=== PATIENT | male | born 1970 | race Caucasian/White ===

== ENCOUNTER 2020-08-15 07:53 | Outpatient (CLI) | payer OTHER ==
[2020-08-15 08:55] VITALS: BP 128/89
--- NOTE | 2020-08-15 08:55 | SLEEP CARE CONSULTATION ---
Information from patient questionnaire entered by Yara Ratliff. I have reviewed and concur with the information entered by Yara Ratliff. This document represents the service I personally performed and the decisions made by me, Chelsea Lu ARNP. History of Present Illness Service Date and Time: 08/15/2020 0753 Reason for Visit: New patient, Previously diagnosed sleep apnea, sleep apnea on CPAP therapy Chief Complaint: reports: Snoring, Observed pauses in breathing, Fatigue, Frequent awakenings at night Date of Onset: 10 years Usual bedtime: 9:30-10 pm Time it takes to fall asleep: 3-5 minutes Snores at night: Yes Observed to quit breathing while asleep: Yes Sleeps alone due to snoring: Yes Number of times waking at night: 3-5 Reasons for waking at night: reports: Other (not sure) Toss, Turn, or Twitch while sleeping: No Recalls having dreams: No Usually gets out of bed at: 4:15-5 am Feels refreshed in the morning: No Morning headache: No Sleepy or fatigued during the day: Yes Ever fallen asleep while driving: Yes Takes day naps: No Dreams during day naps: No Prior sleep studies: Yes Year and Where: - [place], [place] Additional HPI information: CHAPIN SHORT was diagnosed to have unknown sleep apnea-hypopnea syndrome and comes in today to establish care for CPAP therapy. He came back in 2012 but due to work deployments he did not have time to establish care. He has been using CPAP since 2009. He has not been seeing a sleep clinician since 2012. - Parasomnia Symptoms Ever been unable to move upon waking from sleep: No Walks in sleep: No Talks in sleep: No Ever acted out dreams in sleep: No Ever felt weak in the knees when startled or emotional: Yes Bothered by creepy, crawly, restless sensations in legs: No Problems with memory or concentration: Yes CPAP Compliance Data - Data Reviewed with Patient Average duration of nightly device use: 6 hours 22 minutes Compliance rate %: 77.2 Current pressure setting (cmH2O): 4-20 (mean 7.7, 90% avg 11.2) Average residual AHI: 3.2 Average large leak: 12 seconds Compliance data discussion: He has been purchasing his supplies for several years. He has been using a full face mask that is currently falling apart. He states he uses the CPAP as much as he can. He has a machine that is over 10 years old and in the last week he has not felt the pressure is high enough and his has stated that he is snoring while using the CPAP. Subjective Missed days of use due to: reports: travel Patient concerns: reports: condensation in mask/hose (little bit, no heated hose). denies: aerophagia, mask discomfort, air blowing in eyes, mask leak noise, nasal congestion, dry mouth, nose, throat, epistaxis, other Observed to snore while using device: Yes (some in last week) Current pressure setting perceived as: too low On therapy, patient: reports: sleeping better, awakening more refreshed, being more awake and alert during the day, more rested overall. denies: drowsiness while driving Initial [place] Sleepiness Scale score: 21 (in 2020) Past Medical History Past Medical History: reports: GERD Social History The patient's occupation is a Active . Patient is and lives in [place]. Have you smoked in the past 12 months: No Quit date: 1999 Alcohol use: Yes Alcohol amount and frequency: 1-2 drinks maybe once a month Caffeine use: Yes Caffeine amount and frequency: 2 cups of coffee a day Family History Family history of sleep disordered breathing: No Allergies and Home Medications Drug allergies reviewed: Yes (NKDA) Home medication list reviewed: Yes Allergy and home medication list: Pantoprazole Review of Systems Cardiovascular: denies: high blood pressure Gastrointestinal: reports: heartburn, abdominal pain Neurological: denies: headaches Psychiatric: denies: anxiety, depression Ear/Nose/Throat: reports: wisdom teeth removed. denies: tonsillectomy Musculoskeletal: reports: joint pain, neck pain, back pain Physical Exam Blood Pressure: 128/89 Cuff size: wrist Heart Rate: 80 O2 Saturation: 96 Height: 5 ft 9 in Weight: 215 lb Body Mass Index: 31.7 BMI Classification: Obese Heart: regular rate and rhythm Lungs: clear bilaterally Impression and Plan 1. Obstructive Sleep Apnea-Hypopnea Syndrome, unknown, with fair treatment compliance and good apnea control. On CPAP therapy, the patient has better sleep quality and is more rested overall. He did not have a copy of his sleep study t roshni and we will be requesting this. He states the last sleep study was done in 2009. He needs a mask because his current one is falling apart making it difficult to use his machine. A [employer] full face mask, medium, was given to patient to use while we get his sleep study paperwork verified. The patients CPAP is over 10 years old and of reasonable use. Thus, the CPAP will be updated once we have his last sleep study verified or we obtain an HST to verify diagnosis and severity. A DWO prescription will be made once his diagnosis is verified to replace machine, supplies and transfer DME. Compliance guidelines for new device and follow up discussed. He voiced understanding and agreement with plan of care. Patient's apnea severity and rationale for treatment to reduce apnea, improve sleep quality and reduce cardiovascular and cerebrovascular events was reviewed. I also reviewed the benefit of consistent device use of CPAP for gastric reflux. * Continue auto CPAP pressure at 4-20 cmH2O * Obtain previous sleep study or complete HST to verify MISA * Transfer DME, update CPAP machine and supplies once diagnosis is verified * Notify me if snoring with mask or feeling that the pressure is too much or too little * Attempt to lose weight * Call this office if any problems using CPAP * Return for follow up after HST or 1 month after new machine obtained, or sooner if concerns arise Counseling Topics: Spare mask, Weight loss health impact Visit Type: In Office Time Spent with Patient (minutes): 44 Provider Statement: I spent 100% of the Face to Face Visit with the patient with greater than 50% spent counseling the patient and coordination of care.
== END 2020-08-15 07:54 | disposition home or self-care (01) ==
LOC: SC 07:53
PROVIDERS: ATTEND Nurse Practitioner Family
DX: G47.33 Obstructive sleep apnea (adult) (pediatric) (principal); E66.9 Obesity, unspecified; Z68.31 Body mass index [BMI] 31.0-31.9, adult
CPT/HCPCS: 99203; 99212

== ENCOUNTER 2021-09-09 14:48 | Outpatient (CLI) | payer OTHER | END 2021-09-09 14:49 | disposition short-term general hospital (02) | LOC: EMS 14:48 | DX: I21.3 ST elevation (STEMI) myocardial infarction of unspecified site (principal) | CPT/HCPCS: A0425; A0427 ==

== ENCOUNTER 2021-10-03 08:29 | Emergency (ER) | payer OTHER ==
--- OUTSIDE RECORDS SUMMARY | 2021-10-03 08:55 | EXTERNAL MEDICAL SUMMARY RPT | Continuity of Care Document ---
:1970 Author Organization [facility] Address [address] [place] [address] Phone Care Team Providers Name Role Phone M.Delbert, Norman Zurita Unavailable Unavailabl e Allergies No information. Encounters No information. Medications No information. Problems date description facility 20210909 ST elevation (STEMI) myocardial [facility] infarction of unspecified site 20210909 Unspecified chest pain All 20210909 Chest pain, unspecified All 20210909 Chest pain All Procedures date description facility 20210909 Med Administration (PO-SL-IN-MT) All Results No information. Vital Signs date measurement value source 20210909 respiration_rate 22 /min 20210909 heart_rate 74 /min 20210909 BP_systolic 147 mm[Hg] 20210909 BP_diastolic 99 mm[Hg]
--- NOTE | 2021-10-03 09:09 | ED Physician Documentation ---
PD HPI CHEST PAIN - Stated complaint Stated Complaint: CHEST TIGHT/NAUSEA/LIGHT HEADED - Chief complaint Chief Complaint: Cardiac - History obtained from History obtained from: Patient - History of Present Illness Timing - onset: Today, Last night Timing - onset during: Light activity Timing - details: Gradual onset, Now resolved (had some chest pressure and pain, with belching that improved symptoms. some feeling of lightheaded though. No chest pain similar to recent NH.) Quality: Aching, Pain Location: Substernal, Epigastric Radiation: No: Jaw, Neck, Back Improved by: Antacids Worsened by: No: Exertion, Inspiration Associated symptoms: Shortness of air, Feeling faint / dizzy. No: Diaphoresis, Nausea, Vomiting Similar symptoms before: Has not had sx before Recently seen: Admitted (had chest pain with STEMI findings and EMS brought him to [facility] 3 1/2 weks ago. He had 2 stents (left anterior descending and right circumflex). Has been feeling okay with normal activity.) Review of Systems Constitutional: denies: Fever, Chills Nose: denies: Rhinorrhea / runny nose, Congestion Throat: denies: Sore throat Cardiac: reports: Chest pain / pressure. denies: Palpitations, Pedal edema, Calf pain Respiratory: denies: Dyspnea, Cough, Wheezing GI: denies: Abdominal Pain, Nausea, Vomiting, Diarrhea, Bloody / black stool Musculoskeletal: denies: Neck pain, Back pain PD PAST MEDICAL HISTORY - Past Medical History Cardiovascular: Coronary artery disease Respiratory: None Neuro: None Endocrine/Autoimmune: None - Present Medications Home Medications: Ambulatory Orders Medication Instructions Recorded Confirmed Aspirin [Aspirin EC] 81 mg PO DAILY 10/03/21 10/03/21 Atorvastatin [Lipitor] 40 mg PO DAILY PM 10/03/21 10/03/21 Clopidogrel [Plavix] 75 mg PO DAILY 10/03/21 10/03/21 Lisinopril [Zestril] 2.5 mg PO DAILY 10/03/21 10/03/21 Metoprolol Succinate [Toprol Xl] 25 mg PO DAILY 10/03/21 10/03/21 Pantoprazole [Protonix] 40 mg PO DAILY 10/03/21 10/03/21 - Allergies Allergies/Adverse Reactions: Allergies Allergy/AdvReac Type Severity Reaction Status Date / Time No Known Drug Allergies Allergy Verified 10/03/21 08:45 PD ED PE NORMAL - Vitals Vital signs reviewed: Yes - General General: Alert and oriented X 3, No acute distress, Well developed/nourished - HEENT HEENT: PERRL (nonicteric), EOMI - Neck Neck: Supple, no meningeal sign, No adenopathy, No JVD - Cardiac Cardiac: RRR, No murmur - Respiratory Respiratory: Clear bilaterally - Abdomen Abdomen: Soft, Non tender - Derm Derm: Normal color, Warm and dry, No rash - Extremities Extremities: Normal ROM s pain, No edema, No calf tenderness / cord - Neuro Neuro: Alert and oriented X 3, No motor deficit, No sensory deficit, Normal speech Results - Vitals Vitals: Vital Signs - 24 hr 10/03/21 10/03/21 10/03/21 08:42 09:05 09:30 Temperature 36.5 C Heart Rate 74 78 75 Respiratory 19 14 22 Rate Blood Pressure 152/86 H 125/72 132/82 H O2 Saturation 100 95 94 10/03/21 10/03/21 10:00 10:30 Temperature Heart Rate 72 67 Respiratory 23 19 Rate Blood Pressure 116/74 113/74 O2 Saturation 95 99 Oxygen O2 Source Room air - EKG (time done) 08:40 Rate: Rate (enter#) (75) Rhythm: NSR [place]: Normal Intervals: Normal [place] QRS: Normal Ischemia: Normal ST segments. No: ST elevation c/w ischemia, ST depression Compare to prior EKG: Old EKG unavailable - Labs Labs: Laboratory Tests 10/03/21 10/03/21 10/03/21 08:46 08:46 08:46 WBC 9.2 RBC 5.10 Hgb 15.0 Hct 44.5 MCV 87.3 MCH 29.4 MCHC 33.7 RDW 12.4 Plt Count 302 MPV 10.2 Neut # (Auto) 6.6 Lymph # (Auto) 1.6 [place] # (Auto) 0.6 Eos # (Auto) 0.3 Baso # (Auto) 0.1 Absolute Nucleated RBC 0.00 Nucleated RBC % 0.0 Sodium 138 Potassium 3.6 Chloride 102 Carbon Dioxide 26 Anion Gap 10.0 BUN 16 Creatinine 0.9 Estimated GFR (MDRD) 90 Glucose 158 H Calcium 9.6 Total Bilirubin 1.0 AST 39 ALT 59 Alkaline Phosphatase 99 Troponin I High Sens 4.7 Total Protein 8.3 H Albumin 4.7 Globulin 3.6 Albumin/Globulin Ratio 1.3 Lipase 34 - Rads (name of study) chest xray Radiology: Prelim report reviewed (no acute process), See rad report Departure - Departure Disposition: 01 Home, Self Care Clinical Impression: Hx of heart artery stent, Chest discomfort, Episodic lightheadedness Condition: Stable Comments: Adequately hydrated. Regular diet. I would suggest holding your lisinopril medication for the next several days to week until otherwise advised by your public relations sales marketing. Continue your other usual medicines. Check your blood pressure 2-3 times daily over the next few days and see what the trend is. Also check your heart rate. Contact your cardiology office tomorrow to update them on symptoms and how you are doing. Off work and rest today. Your EKG, troponin, chest x-ray are normal without any signs of stent failure or complications from the heart stent. Return if worsening symptoms overall. Discharge Date/Time: 10/03/21 10:57
[2021-10-03 09:23] LABS: BASOPHILS # (AUTO) 0.1 10^3/uL (0.0-0.1); EOSINOPHILS # (AUTO) 0.3 10^3/uL (0.0-0.7); EOSINOPHILS % (AUTO) 2.7 %; HCT - HEMATOCRIT 44.5 % (42.0-52.0); LYMPHOCYTES # (AUTO) 1.6 10^3/uL (1.5-3.5); LYMPHOCYTES % (AUTO) 17.4 %; MEAN CORPUSCULAR HEMOGLOBIN 29.4 pg (27.0-31.0); MEAN CORPUSCULAR HGB CONC 33.7 g/dL (32.0-36.0); MEAN CORPUSCULAR VOLUME 87.3 fL (80.0-94.0); MEAN PLATELET VOLUME 10.2 fL (7.4-11.4); MONOCYTES # (AUTO) 0.6 10^3/uL (0.0-1.0); MONOCYTES % (AUTO) 6.7 %; NEUTROPHILS # (AUTO) 6.6 10^3/uL (1.5-6.6); PLT - PLATELET COUNT 302 10^3/uL (130-450); RED CELL DISTRIBUTION WIDTH 12.4 % (12.0-15.0); WHITE BLOOD COUNT 9.2 x10^3/uL (4.8-10.8)
--- NOTE | 2021-10-03 09:45 | XRAY Report ---
PROCEDURE: Chest 1 View X-Ray INDICATIONS: Chest pain TECHNIQUE: One view of the chest was acquired. COMPARISON: None. FINDINGS: Surgical changes and devices: None. Lungs and pleura: No pleural effusions or pneumothorax. Lungs are clear. Mediastinum: Mediastinal contours appear normal. Heart size is normal. Bones and chest wall: No suspicious bony lesions. Overlying soft tissues appear unremarkable. IMPRESSION: No acute cardiopulmonary pathology. Reviewed by: Addy Garcia MD on 10/03/2021 9:44 AM PDT Approved by: Addy Garcia MD on 10/03/2021 9:44 AM PDT Station ID: [id number]
[2021-10-03 09:46] LABS: ALBUMIN 4.7 g/dL (3.2-5.5); ALBUMIN/GLOBULIN RATIO 1.3 (1.0-2.2); CALCIUM 9.6 mg/dL (8.5-10.3); CREATININE 0.9 mg/dL (0.6-1.2); POTASSIUM 3.6 mmol/L (3.5-5.0); TOTAL PROTEIN 8.3 g/dL (6.7-8.2)
[2021-10-03 10:51] VITALS: BP 113/74
== END 2021-10-03 10:57 | disposition home or self-care (01) ==
LOC: ED 08:29
DX: R07.9 Chest pain, unspecified (principal); R42 Dizziness and giddiness; Z95.5 Presence of coronary angioplasty implant and graft
CPT/HCPCS: 36415; 80053; 83690; 84484; 85025; 93005; 99284

== ENCOUNTER 2022-02-03 11:34 | Outpatient (CLI) | payer OTHER ==
[2022-02-03 18:04] LABS: BASOPHILS % (AUTO) 0.5 %; EOSINOPHILS % (AUTO) 0.4 %; LYMPHOCYTES # (AUTO) 1.5 10^3/uL (1.5-3.5); LYMPHOCYTES % (AUTO) 18.5 %; MEAN CORPUSCULAR HEMOGLOBIN 28.1 pg (27.0-31.0); MEAN CORPUSCULAR HGB CONC 31.8 g/dL (32.0-36.0); MEAN CORPUSCULAR VOLUME 88.4 fL (80.0-94.0); MEAN PLATELET VOLUME 10.3 fL (7.4-11.4); MONOCYTES # (AUTO) 0.5 10^3/uL (0.0-1.0); MONOCYTES % (AUTO) 6.4 %; NEUTROPHILS # (AUTO) 6.1 10^3/uL (1.5-6.6); PLT - PLATELET COUNT 334 10^3/uL (130-450); RED BLOOD COUNT 4.98 10^6/uL (4.70-6.10); RED CELL DISTRIBUTION WIDTH 12.3 % (12.0-15.0); WHITE BLOOD COUNT 8.3 x10^3/uL (4.8-10.8)
[2022-02-03 18:08] LABS: ALBUMIN 4.3 g/dL (3.2-5.5); ALBUMIN/GLOBULIN RATIO 1.3 (1.0-2.2); ALKALINE PHOSPHATASE 80 IU/L (42-121); ALT ALANINE AMINOTRANSFERASE 57 IU/L (10-60); AST ASPARTATE AMINOTRANSFERASE 30 IU/L (10-42); BILIRUBIN,TOTAL 0.6 mg/dL (0.2-1.0); BUN - BLOOD UREA NITROGEN 13 mg/dL (6-20); CALCIUM 9.4 mg/dL (8.5-10.3); CARBON DIOXIDE - CO2 29 mmol/L (21-32); CHLORIDE 106 mmol/L (101-111); CHOL/HDL RATIO 3.2 (<5.0); CHOLESTEROL 110 mg/dL; CREATININE 0.9 mg/dL (0.6-1.2); GFR - MDRD 89 (>89); GLUCOSE 88 mg/dL (70-100); HDL CHOLESTEROL 34 mg/dL; LDL CHOLESTEROL,CALCULATED 66 mg/dL; LDL/HDL RATIO 1.9 (<3.6); POTASSIUM 4.1 mmol/L (3.5-5.0); SODIUM 142 mmol/L (135-145); TOTAL PROTEIN 7.6 g/dL (6.7-8.2); TRIGLYCERIDES 51 mg/dL; VLDL CHOLESTEROL 10 mg/dL
== END 2022-02-03 11:35 | disposition home or self-care (01) ==
LOC: LAB.N 11:34
PROVIDERS: ATTEND Nurse Practitioner Family
DX: E78.2 Mixed hyperlipidemia (principal); I21.02 ST elevation (STEMI) myocardial infarction involving left anterior descending coronary artery
CPT/HCPCS: 36415; 80053; 80061; 83721; 85025

== ENCOUNTER 2023-04-27 11:29 | Outpatient (CLI) | payer OTHER ==
[2023-04-27 18:14] LABS: CHOL/HDL RATIO 2.7 (<5.0); CHOLESTEROL 125 mg/dL; HDL CHOLESTEROL 46 mg/dL; LDL CHOLESTEROL,CALCULATED 67 mg/dL; LDL/HDL RATIO 1.5 (<3.6); TRIGLYCERIDES 61 mg/dL (48-352); VLDL CHOLESTEROL 12 mg/dL
== END 2023-04-27 11:30 | disposition home or self-care (01) ==
LOC: LAB.N 11:29
PROVIDERS: ATTEND Internal Medicine
DX: I25.10 Atherosclerotic heart disease of native coronary artery without angina pectoris (principal)
CPT/HCPCS: 36415; 80061; 83721